=== PATIENT | female | born 1960 | race Caucasian/White ===

== ENCOUNTER 2019-03-08 21:18 | Emergency (ER) | payer SELFPAY ==
[2019-03-08] MEDS: ACETAMINOPHEN 325 MG TAB PO (21:51)
== END 2019-03-08 23:43 | disposition home or self-care (01) ==
LOC: FTE 21:18
DX: S62.617A Displaced fracture of proximal phalanx of left little finger, initial encounter for closed fracture (principal); W18.39XA Other fall on same level, initial encounter; Y92.832 Beach as the place of occurrence of the external cause
CPT/HCPCS: 29125; 73110-LT; 73130-LT; 99283-25